=== PATIENT | female | born 1985 | race Two or more races ===

== ENCOUNTER 2024-07-26 18:39 | Emergency (ER) | payer OTHER ==
[~2024-07-26] VITALS: Ht 165.1 cm; Wt 52.6 kg
[2024-07-26] MEDS ORDERED: AZITHROMYCIN500 MG PO (20:42)
[2024-07-26] MEDS ORDERED: PEPCID AC20 MG PO (20:42)
[2024-07-26] MEDS ORDERED: CEFTRIAXONE SODIUM 1,000 MG VIAL IM ONE (20:45)
[2024-07-26] MEDS ORDERED: METHYLPREDNISOLONE SOD SUCC 40 MG VIAL IM ONE (20:45)
[2024-07-26] MEDS ORDERED: METHYLPREDNISOLONE SOD SUCC 40 MG VIAL ONE (21:08)
== END 2024-07-26 22:05 | disposition home or self-care (01) ==
LOC: ER 20:45
DX: J02.0 Streptococcal pharyngitis (principal)